=== PATIENT | female | born 1965 | race African-American/Black ===

== ENCOUNTER → 2016-07-23 | Outpatient (CLI) | payer BC ==
--- NOTE | 2016-07-24 14:37 | MM ---
Reason for exam: screening (asymptomatic). Last mammogram was performed 1 year ago. History: Patient is postmenopausal. Physical Findings: A clinical breast exam by your physician is recommended on an annual basis and results should be correlated with mammographic findings. MG Screening Mammo w CAD Bilateral CC and MLO view(s) were taken. Prior study comparison: July 20, 2015, bilateral MG screening mammo w CAD. July 18, 2014, bilateral MG screening mammo w CAD. There are scattered fibroglandular densities. Finding: There are typically benign calcifications in the right breast. There is a chronic nodularity bilaterally. No significant changes in finding since July 20, 2015 and July 18, 2014. ASSESSMENT: Benign, BI-RAD 2 RECOMMENDATION: Routine screening mammogram of both breasts in 1 year.
== END | disposition home or self-care (01) ==
LOC: RADMAMWWP 16:50
PROVIDERS: ATTEND Family Medicine
DX: Z12.31 Encounter for screening mammogram for malignant neoplasm of breast (principal)

== ENCOUNTER → 2016-08-30 | Outpatient (CLI) | payer BC ==
[2016-08-30 10:48] LABS: ALT 46 U/L (9-52); AST 40 U/L (14-36); Alkaline Phosphatase 88 U/L (38-126); Anion Gap 10 mmol/L; Blood Urea Nitrogen 11 mg/dL (7-17); Calcium 9.8 mg/dL (8.4-10.2); Carbon Dioxide 28 mmol/L (22-30); Chloride 105 mmol/L (98-107); Cholesterol 161 mg/dL (<200); Glucose 131 mg/dL (74-99); HDL Cholesterol 60 mg/dL (40-60); Non-African American GFR(MDRD) >60 (>60 ml/min/1.73 sqM); Sodium 143 mmol/L (137-145); Total Bilirubin 0.7 mg/dL (0.2-1.3); Total Protein 8.1 g/dL (6.3-8.2); Triglycerides 91 mg/dL (<150)
[2016-08-30 11:18] LABS: Hepatitis B Surface Ag Index 0.05
[2016-08-30 11:24] LABS: Hepatitis B Core IgM Index 0.03
[2016-08-30 11:35] LABS: Hepatitis C Virus IgG Index 0.07
[2016-08-30 11:40] LABS: Hepatitis C Virus IgG Ab Negative (Negative)
== END | disposition home or self-care (01) ==
LOC: LABWHC1 09:32
PROVIDERS: ATTEND Family Medicine
DX: Z00.00 Encounter for general adult medical examination without abnormal findings (principal); E78.5 Hyperlipidemia, unspecified; R94.5 Abnormal results of liver function studies
CPT/HCPCS: 36415; 80053; 80061; 80074

== ENCOUNTER → 2017-04-01 | Outpatient (CLI) | payer BC ==
[2017-04-01 10:59] LABS: ALT 81 U/L (9-52); AST 88 U/L (14-36); Alkaline Phosphatase 142 U/L (38-126); Blood Urea Nitrogen 19 mg/dL (7-17); Non-African American GFR(MDRD) >60 (>60 ml/min/1.73 sqM)
== END | disposition home or self-care (01) ==
LOC: LABWHC1 09:59
PROVIDERS: ATTEND Pain Medicine Pain Medicine
DX: N14.2 Nephropathy induced by unspecified drug, medicament or biological substance (principal)
CPT/HCPCS: 36415; 82565; 84075; 84450; 84460; 84520

== ENCOUNTER → 2017-04-08 | Outpatient (CLI) | payer BC | END | disposition home or self-care (01) | LOC: LABWHC1 07:08 | PROVIDERS: ATTEND Family Medicine | DX: E11.9 Type 2 diabetes mellitus without complications (principal) | CPT/HCPCS: 36415; 83036 ==

== ENCOUNTER → 2017-08-19 | Outpatient (CLI) | payer BC ==
[2017-08-19 07:40] LABS: ALT 43 U/L (9-52); AST 30 U/L (14-36); Albumin 3.8 g/dL (3.5-5.0); Alkaline Phosphatase 103 U/L (38-126); Anion Gap 12 mmol/L; Blood Urea Nitrogen 17 mg/dL (7-17); Calcium 9.8 mg/dL (8.4-10.2); Carbon Dioxide 30 mmol/L (22-30); Chloride 102 mmol/L (98-107); Cholesterol 166 mg/dL (<200); Glucose 219 mg/dL (74-99); HDL Cholesterol 60 mg/dL (40-60); LDL Cholesterol,Calculated 93 mg/dL (0-99); Potassium 3.5 mmol/L (3.5-5.1); Sodium 144 mmol/L (137-145); Total Bilirubin 0.5 mg/dL (0.2-1.3); Total Protein 6.7 g/dL (6.3-8.2); Triglycerides 65 mg/dL (<150)
[2017-08-19 12:57] LABS: Hemoglobin A1C 9.1 % (4.0-6.0)
== END | disposition home or self-care (01) ==
LOC: LABWHC1 06:36
PROVIDERS: ATTEND Family Medicine
DX: E11.9 Type 2 diabetes mellitus without complications (principal); E78.00 Pure hypercholesterolemia, unspecified; I10 Essential (primary) hypertension
CPT/HCPCS: 36415; 80053; 80061; 83036

== ENCOUNTER → 2017-08-21 | Outpatient (CLI) | payer BC ==
--- NOTE | 2017-08-24 10:27 | MM ---
Reason for exam: screening (asymptomatic). Last mammogram was performed 1 year and 1 month ago. History: Patient is postmenopausal. Physical Findings: A clinical breast exam by your physician is recommended on an annual basis and results should be correlated with mammographic findings. MG Screening Mammo w CAD Bilateral CC and MLO view(s) were taken. XCCL view(s) were taken of the left breast. Prior study comparison: July 23, 2016, bilateral MG screening mammo w CAD. July 20, 2015, bilateral MG screening mammo w CAD. There are scattered fibroglandular densities. No significant changes when compared with prior studies. ASSESSMENT: Negative, BI-RAD 1 RECOMMENDATION: Routine screening mammogram of both breasts in 1 year.
== END ==
LOC: RADMAMWWP 11:01
PROVIDERS: ATTEND Family Medicine
DX: Z12.31 Encounter for screening mammogram for malignant neoplasm of breast (principal)
CPT/HCPCS: 77067

== ENCOUNTER 2017-08-30 16:07 | Emergency (ER) | payer BC ==
[2017-08-30 16:12] VITALS: BP 146/74; PULSE 92; RESP 18; TEMP 98.2
--- NOTE | 2017-08-30 16:52 | ED ---
General Adult HPI - General Chief complaint: Upper Respiratory Infection Stated complaint: congestion Time Seen by Provider: 08/30/17 16:33 Source: patient, RN notes reviewed Mode of arrival: ambulatory Limitations: no limitations - History of Present Illness Initial comments: Patient's a 51-year-old female presented to the emergency room today with chief complaint of cough congestion rhinorrhea and sinus pressure over the last 2 weeks. She does admit that she's used [id number] Flonase and saline spray. She states this didn't help with her cough or congestion. She says is improved but she still feeling sinus pressure. She was some pressure in the left ear as well. Patient states that she doesn't seem to be given any better over the past 2 weeks. She denies any other complaints or associated symptoms at this time. Patient denies any recent fever, chills, shortness of breath, chest pain, back pain, abdominal pain, nausea or vomiting, numbness or tingling , dysuria or hematuria, constipation or diarrhea, headaches or visual changes, or any other complaints. - Related Data Home Medications Medication Instructions Recorded Confirmed Aspirin 81 mg PO DAILY 06/23/14 04/23/17 Atorvastatin Calcium [Lipitor] 10 mg PO DAILY 06/23/14 04/23/17 Furosemide [Lasix] 20 mg PO DAILY 06/23/14 04/23/17 Multivitamins, Thera [Multivitamin] 1 each PO DAILY 06/23/14 04/23/17 Potassium(Dose Unknown) 1 tab PO DAILY 06/23/14 04/23/17 Valsartan/Hydrochlorothiazide 1 each PO DAILY 06/23/14 04/23/17 [Diovan Hct 80-12.5 mg Tablet] Glimepiride [Amaryl] 4 mg PO DAILY 04/23/17 04/23/17 Insulin Glargine,Hum.rec.anlog 10 unit SQ DAILY 04/23/17 04/23/17 [Basaglar Kwikpen U-100] Liraglutide [Victoza 3-Frank] 1.8 mg SQ DAILY 04/23/17 04/23/17 Previous Rx's Medication Instructions Recorded Amoxicillin/Potassium Clav 1 each PO Q12HR #20 tab 08/30/17 [Augmentin 875-125 Tablet] Allergies Allergy/AdvReac Type Severity Reaction Status Date / Time No Known Allergies Allergy Verified 08/30/17 16:12 Review of Systems ROS Statement: Those systems with pertinent positive or pertinent negative responses have been documented in the HPI. ROS Other: All systems not noted in ROS Statement are negative. Past Medical History Past Medical History: Diabetes Mellitus, Osteoarthritis (OA) Additional Past Medical History / Comment(s): Chronic back pain History of Any Multi-Drug Resistant Organisms: None Reported Past Surgical History: Hysterectomy Additional Past Surgical History / Comment(s): carpal tunnel, D&C Past Anesthesia/Blood Transfusion Reactions: No Reported Reaction Past Psychological History: No Psychological Hx Reported Smoking Status: Never smoker Past Alcohol Use History: None Reported Past Drug Use History: None Reported General Exam - General Exam Comments Initial Comments: General: The patient is awake and alert, in no distress, and does not appear acutely ill. Eye: Pupils are equal, round and reactive to light, extra-ocular movements are intact. No nystagmus. There is normal conjunctiva bilaterally. No signs of icterus. Ears, nose, mouth and throat: There are moist mucous membranes and no oral lesions. No tenderness over the maxillary sinus. TMs clear bilaterally. Neck: The neck is supple, there is no tenderness or JVD. Cardiovascular: There is a regular rate and rhythm. No murmur, rub or gallop is appreciated. Respiratory: Lungs are clear to auscultation, respirations are non-labored, breath sounds are equal. No wheezes, stridor, rales, or rhonchi. Musculoskeletal: Normal ROM, no tenderness. Strength 5/5. Sensation intact. Pulses equal bilaterally 2+. Neurological: A&O x 3. CN II-XII intact, There are no obvious motor or sensory deficits. Coordination appears grossly intact. Speech is normal. Skin: Skin is warm and dry and no rashes or lesions are noted. Psychiatric: Cooperative, appropriate mood & affect, normal judgment. Limitations: no limitations Course Vital Signs 08/30/17 16:09 Temperature 98.2 F Pulse Rate 92 Respiratory 18 Rate Blood Pressure 146/74 O2 Sat by Pulse 98 Oximetry Medical Decision Making - Medical Decision Making Options were discussed with the patient about x-ray and lab work urine emergency room she declined. Patient does have some tenderness over the sinuses. Was discussed about treating with the antibiotic to cover for sinus infection as she has had symptoms for the past 2 weeks with no improvement. Patient states she would like to try antibiotic course. She states she will follow-up the family doctor. She is advised that should return to the emergency room if any symptoms increase or worsen or for any other concerns. Disposition Clinical Impression: Acute sinusitis Disposition: HOME SELF-CARE Condition: Good Instructions: Sinusitis (ED) Additional Instructions: Please use medication as discussed. Please follow-up with family doctor in the next 2 days of symptoms have not improved. Please return to emergency room if the symptoms increase or worsen or for any other concerns. Prescriptions: Amoxicillin/Potassium Clav [Augmentin 875-125 Tablet] 1 each PO Q12HR #20 tab Referrals: Maritza Martínez MD [Primary Care Provider] - 1-2 days Time of Disposition: 16:51
== END 2017-08-30 17:14 | disposition home or self-care (01) ==
LOC: EC 16:07
DX: J01.90 Acute sinusitis, unspecified (principal); E11.9 Type 2 diabetes mellitus without complications; Z53.29 Procedure and treatment not carried out because of patient's decision for other reasons; Z79.82 Long term (current) use of aspirin; Z79.4 Long term (current) use of insulin; Z79.899 Other long term (current) drug therapy
CPT/HCPCS: 99283

== ENCOUNTER 2018-09-01 17:03 | Emergency (ER) | payer BC ==
[2018-09-01 17:42] VITALS: BP 155/97; PULSE 90; RESP 16; TEMP 99
--- NOTE | 2018-09-01 18:12 | ED ---
ENT HPI - General Chief complaint: ENT Stated complaint: sorethroat, fever, body aches Time Seen by Provider: 09/01/18 17:45 Source: patient, RN notes reviewed Mode of arrival: ambulatory Limitations: no limitations - History of Present Illness Initial comments: 52-year-old female presents emergency Department chief complaint of fever, sore throat. Patient states that it's painful swallowing no improvement with [id number] medications. Denies any headache, dizziness, neck stiffness, nausea or vomiting no fatigue. Patient states that her granddaughter had recent strep infection. - Related Data Home Medications Medication Instructions Recorded Confirmed Aspirin 81 mg PO DAILY 06/23/14 09/01/18 Atorvastatin Calcium [Lipitor] 10 mg PO DAILY 06/23/14 09/01/18 Furosemide [Lasix] 20 mg PO DAILY 06/23/14 09/01/18 Multivitamins, Thera [Multivitamin] 1 tab PO DAILY 06/23/14 09/01/18 Valsartan/Hydrochlorothiazide 1 tab PO DAILY 06/23/14 09/01/18 [Diovan Hct 80-12.5 mg Tablet] Liraglutide [Victoza 3-Frank] 1.8 mg SQ DAILY 04/23/17 09/01/18 Empagliflozin [Jardiance] 25 mg PO DAILY 09/01/18 09/01/18 Metoprolol Succinate [Toprol XL] 100 mg PO DAILY 09/01/18 09/01/18 metFORMIN HCL 1,000 mg PO BID 09/01/18 09/01/18 Previous Rx's Medication Instructions Recorded Amoxicillin 500 mg PO Q8H #30 capsule 09/01/18 Allergies Allergy/AdvReac Type Severity Reaction Status Date / Time No Known Allergies Allergy Verified 09/01/18 18:04 Review of Systems ROS Statement: Those systems with pertinent positive or pertinent negative responses have been documented in the HPI. ROS Other: All systems not noted in ROS Statement are negative. Past Medical History Past Medical History: Diabetes Mellitus, Osteoarthritis (OA) Additional Past Medical History / Comment(s): Chronic back pain History of Any Multi-Drug Resistant Organisms: None Reported Past Surgical History: Hysterectomy Additional Past Surgical History / Comment(s): carpal tunnel, D&C Past Anesthesia/Blood Transfusion Reactions: No Reported Reaction Past Psychological History: No Psychological Hx Reported Smoking Status: Never smoker Past Alcohol Use History: None Reported Past Drug Use History: None Reported General Exam Limitations: no limitations General appearance: alert, in no apparent distress Head exam: Present: atraumatic, normocephalic, normal inspection Eye exam: Present: normal appearance, PERRL, EOMI. Absent: scleral icterus, conjunctival injection, periorbital swelling ENT exam: Present: mucous membranes moist, TM's normal bilaterally, normal external ear exam. Absent: normal oropharynx (Erythematous posterior pharynx mild edematous tonsils noted no exudates no difficulty swallowing) Neck exam: Present: normal inspection, full ROM, lymphadenopathy. Absent: tenderness, meningismus Respiratory exam: Present: normal lung sounds bilaterally. Absent: respiratory distress, wheezes, rales, rhonchi, stridor Cardiovascular Exam: Present: regular rate, normal rhythm, normal heart sounds. Absent: systolic murmur, diastolic murmur, rubs, gallop, clicks Course Vital Signs 09/01/18 17:41 Temperature 99 F Pulse Rate 90 Respiratory 16 Rate Blood Pressure 155/97 O2 Sat by Pulse 98 Oximetry Medical Decision Making - Medical Decision Making 52-year-old presented for fever sore throat. Patient has clinical strep pharyngitis will be started on amoxicillin. Return parameters were discussed. Disposition Clinical Impression: Streptococcal sore throat Disposition: HOME SELF-CARE Condition: Stable Instructions (If sedation given, give patient instructions): Pharyngitis (ED) Additional Instructions: Please return to the Emergency Department if symptoms worsen or any other concerns. Prescriptions: Amoxicillin 500 mg PO Q8H #30 capsule Is patient prescribed a controlled substance at d/c from ED?: No Referrals: Maritza Martínez MD [Primary Care Provider] - 1-2 days Time of Disposition: 18:12
== END 2018-09-01 18:30 | disposition home or self-care (01) ==
LOC: EC 17:03
DX: J02.0 Streptococcal pharyngitis (principal); E11.9 Type 2 diabetes mellitus without complications; Z90.710 Acquired absence of both cervix and uterus; Z79.82 Long term (current) use of aspirin; Z79.84 Long term (current) use of oral hypoglycemic drugs; Z79.899 Other long term (current) drug therapy
CPT/HCPCS: 99283

== ENCOUNTER → 2018-09-03 | Outpatient (CLI) | payer BC ==
--- NOTE | 2018-09-07 08:25 | MM ---
Reason for exam: screening (asymptomatic). Last mammogram was performed 1 year ago. History: Patient is postmenopausal. Physical Findings: A clinical breast exam by your physician is recommended on an annual basis and results should be correlated with mammographic findings. MG 3D Screening Mammo W/Cad Bilateral CC and MLO view(s) were taken. Prior study comparison: August 21, 2017, bilateral MG screening mammo w CAD. July 23, 2016, bilateral MG screening mammo w CAD. There are scattered fibroglandular densities. There is chronic nodularity in the left breast. No significant changes when compared with prior studies. ASSESSMENT: Negative, BI-RAD 1 RECOMMENDATION: Routine screening mammogram of both breasts in 1 year.
== END | disposition home or self-care (01) ==
LOC: RADMAMWWP 16:15
PROVIDERS: ATTEND Family Medicine
DX: Z12.31 Encounter for screening mammogram for malignant neoplasm of breast (principal)
CPT/HCPCS: 77063; 77067

== ENCOUNTER → 2020-03-21 | Outpatient (CLI) | payer BC ==
--- NOTE | 2020-03-23 12:25 | MM ---
Reason for exam: screening (asymptomatic). Last mammogram was performed 1 year and 7 months ago. History: Patient is postmenopausal. Physical Findings: A clinical breast exam by your physician is recommended on an annual basis and results should be correlated with mammographic findings. MG 3D Screening Mammo W/Cad Bilateral CC and MLO view(s) were taken. Prior study comparison: September 03, 2018, bilateral MG 3d screening mammo w/cad. August 21, 2017, bilateral MG screening mammo w CAD. There are scattered fibroglandular densities. Finding #1: There are masses in both breasts. Finding #2: There are typically benign calcifications in the right breast. No significant changes in finding since September 03, 2018 and August 21, 2017. ASSESSMENT: Benign, BI-RAD 2 RECOMMENDATION: Routine screening mammogram of both breasts in 1 year.
== END | disposition home or self-care (01) ==
LOC: RADMAMWWP 07:34
PROVIDERS: ATTEND Family Medicine
DX: Z12.31 Encounter for screening mammogram for malignant neoplasm of breast (principal)
CPT/HCPCS: 77063; 77067

== ENCOUNTER → 2020-04-09 | Outpatient (CLI) | payer BC | END | disposition home or self-care (01) | LOC: LABWHC1 11:28 | PROVIDERS: ATTEND Family Medicine | DX: Z03.818 Encounter for observation for suspected exposure to other biological agents ruled out (principal) | CPT/HCPCS: U0003; C9803 ==

== ENCOUNTER 2021-01-07 08:28 | Observation (INO) | payer BC ==
--- NOTE | 2021-01-07 09:06 | ED ---
General Adult HPI - General Chief complaint: Chest Pain Stated complaint: Chest pressure, back pain Time Seen by Provider: 01/07/21 08:35 Source: patient Mode of arrival: ambulatory Limitations: no limitations - History of Present Illness Initial comments: Dictation was produced using [employer] dictation software. please excuse any grammatical, word or spelling errors. Chief Complaint: 55-year-old female with chief complaint of chest pain History of Present Illness: Is a 55-year-old female she has past medical history of diabetes and family history of coronary artery disease. She states that yesterday reflux symptoms are acting up. She states that she has some mild sharp pain to her substernal area radiates to her back. States that it's pleuritic. Patient has been eating more burritos recently and attributes her symptoms to reflux. She decided that she should come to the emergency department today. At the moment she is asymptomatic. She reports that her sister was diagnosed with major cardiac disease at the age of 59. Patient has any cardiac history. Patient denies any associated diaphoresis or nausea. Patient denies any lower extremity symptoms. 2 weeks ago patient however was on a trip where she flew to [facility]. No history of DVT or PE. The ROS documented in this emergency department record has been reviewed and confirmed by me. Those systems with pertinent positive or negative responses have been documented in the HPI. All other systems are other negative and/or noncontributory. PHYSICAL EXAM: General Impression: Alert and oriented x3, not in acute distress HEENT: Normocephalic atraumatic, extra-ocular movements intact, pupils equal and reactive to light bilaterally, mucous membranes moist. Cardiovascular: Heart regular rate and rhythm Chest: Able to complete full sentences, no retractions, no tachypnea Abdomen: abdomen soft, non-tender, non-distended, no organomegaly Musculoskeletal: Pulses present and equal in all extremities, no peripheral edema Motor: no focal deficits noted Neurological: CN II-XII grossly intact, no focal motor or sensory deficits noted Skin: Intact with no visualized rashes Psych: Normal affect and mood ED course: 55-year-old well-appearing female presents emergency department for atypical chest pain with typical features. Signs upon arrival are within acceptable limits. EKG doesn't show any signs of ischemia or infarction. Patient is strong family history. She does also have medical risk factors for ACS. Valuation obtained. CBC, coag panel, d-dimer is negative. Metabolic panel is within acceptable limits. Troponin is negative. Chest x-ray is nonacute. Patient reevaluated at bedside found him in stable medical condition. She does not have any active chest pain. Disposition options were discussed. Patient is agreeable for admission with serial troponins and cardiology consultation. Patient will be [facility] to [facility]. Case discussed with Dr. Arciniega. EKG interpretation: Ventricular rate 79, normal sinus rhythm, NJ interval 98, QRS 94, QTC 449. No NJ prolongation, no QTC prolongation, no ST or T-wave changes noted. No old EKG for comparison. Overall, this EKG is unremarkable - Related Data Home Medications Medication Instructions Recorded Confirmed Aspirin 81 mg PO DAILY 06/23/14 01/07/21 Atorvastatin Calcium [Lipitor] 10 mg PO DAILY 06/23/14 01/07/21 Furosemide [Lasix] 20 mg PO DAILY 06/23/14 01/07/21 Multivitamins, Thera [Multivitamin] 1 tab PO DAILY 06/23/14 01/07/21 Valsartan/Hydrochlorothiazide 1 tab PO DAILY 06/23/14 01/07/21 [Diovan Hct 80-12.5 mg Tablet] Metoprolol Succinate [Toprol XL] 100 mg PO DAILY 09/01/18 01/07/21 metFORMIN HCL [Glucophage] 1,000 mg PO BID 09/01/18 01/07/21 Dulaglutide [Trulicity] 3 mg SQ FR 01/07/21 01/07/21 Metoprolol Succinate (ER) [Toprol 100 mg PO DAILY 01/07/21 01/07/21 Xl] valACYclovir [Valtrex] 500 mg PO DAILY 01/07/21 01/07/21 Allergies Allergy/AdvReac Type Severity Reaction Status Date / Time No Known Allergies Allergy Verified 01/07/21 09:28 Review of Systems ROS Statement: Those systems with pertinent positive or pertinent negative responses have been documented in the HPI. ROS Other: All systems not noted in ROS Statement are negative. Past Medical History Past Medical History: Diabetes Mellitus, Osteoarthritis (OA) Additional Past Medical History / Comment(s): Chronic back pain History of Any Multi-Drug Resistant Organisms: None Reported Past Surgical History: Hysterectomy Additional Past Surgical History / Comment(s): carpal tunnel, D&C Past Anesthesia/Blood Transfusion Reactions: No Reported Reaction Past Psychological History: No Psychological Hx Reported Smoking Status: Never smoker Past Alcohol Use History: None Reported Past Drug Use History: None Reported General Exam Limitations: no limitations Course Vital Signs 01/07/21 01/07/21 08:30 11:11 Temperature 97.6 F Pulse Rate 85 68 Respiratory 18 16 Rate Blood Pressure 165/101 164/82 O2 Sat by Pulse 99 97 Oximetry Medical Decision Making - Lab Data Result diagrams: 01/07/21 09:05 01/07/21 09:05 Lab Results 01/07/21 01/07/21 01/07/21 Range/Units 09:05 09:05 09:05 WBC 4.6 (3.8-10.6) k/uL RBC 4.19 (3.80-5.40) m/uL Hgb 13.3 (11.4-16.0) gm/dL Hct 40.3 (34.0-46.0) % MCV 96.2 (80.0-100.0) fL MCH 31.9 (25.0-35.0) pg MCHC 33.1 (31.0-37.0) g/dL RDW 13.2 (11.5-15.5) % Plt Count 221 (150-450) k/uL MPV 8.3 Neutrophils % 50 % Lymphocytes % 37 % Monocytes % 7 % Eosinophils % 2 % Basophils % 1 % Neutrophils # 2.3 (1.3-7.7) k/uL Lymphocytes # 1.7 (1.0-4.8) k/uL Monocytes # 0.3 (0-1.0) k/uL Eosinophils # 0.1 (0-0.7) k/uL Basophils # 0.0 (0-0.2) k/uL PT 9.6 (9.0-12.0) sec INR 0.9 (<1.2) APTT 22.5 (22.0-30.0) sec D-Dimer 0.44 (<0.60) mg/L FEU Sodium 140 (137-145) mmol/L Potassium 3.7 (3.5-5.1) mmol/L Chloride 109 H (98-107) mmol/L Carbon Dioxide 26 (22-30) mmol/L Anion Gap 5 mmol/L BUN 10 (7-17) mg/dL Creatinine 0.59 (0.52-1.04) mg/dL Est GFR (CKD-EPI)AfAm >90 (>60 ml/min/1.73 sqM) Est GFR (CKD-EPI)NonAf >90 (>60 ml/min/1.73 sqM) Glucose 125 H (74-99) mg/dL Calcium 9.5 (8.4-10.2) mg/dL Magnesium 2.0 (1.6-2.3) mg/dL Total Bilirubin 0.3 (0.2-1.3) mg/dL AST 31 (14-36) U/L ALT 18 (4-34) U/L Alkaline Phosphatase 70 (38-126) U/L Troponin I (0.000-0.034) ng/mL Total Protein 6.6 (6.3-8.2) g/dL Albumin 3.8 (3.5-5.0) g/dL 01/07/21 Range/Units 09:05 WBC (3.8-10.6) k/uL RBC (3.80-5.40) m/uL Hgb (11.4-16.0) gm/dL Hct (34.0-46.0) % MCV (80.0-100.0) fL MCH (25.0-35.0) pg MCHC (31.0-37.0) g/dL RDW (11.5-15.5) % Plt Count (150-450) k/uL MPV Neutrophils % % Lymphocytes % % Monocytes % % Eosinophils % % Basophils % % Neutrophils # (1.3-7.7) k/uL Lymphocytes # (1.0-4.8) k/uL Monocytes # (0-1.0) k/uL Eosinophils # (0-0.7) k/uL Basophils # (0-0.2) k/uL PT (9.0-12.0) sec INR (<1.2) APTT (22.0-30.0) sec D-Dimer (<0.60) mg/L FEU Sodium (137-145) mmol/L Potassium (3.5-5.1) mmol/L Chloride (98-107) mmol/L Carbon Dioxide (22-30) mmol/L Anion Gap mmol/L BUN (7-17) mg/dL Creatinine (0.52-1.04) mg/dL Est GFR (CKD-EPI)AfAm (>60 ml/min/1.73 sqM) Est GFR (CKD-EPI)NonAf (>60 ml/min/1.73 sqM) Glucose (74-99) mg/dL Calcium (8.4-10.2) mg/dL Magnesium (1.6-2.3) mg/dL Total Bilirubin (0.2-1.3) mg/dL AST (14-36) U/L ALT (4-34) U/L Alkaline Phosphatase (38-126) U/L Troponin I <0.012 (0.000-0.034) ng/mL Total Protein (6.3-8.2) g/dL Albumin (3.5-5.0) g/dL Disposition Clinical Impression: Chest pain Disposition: ADMITTED IP TO THIS HOSP Condition: Fair Referrals: Maritza Martínez MD [Primary Care Provider] - 1-2 days
[2021-01-07 09:19] LABS: Basophils % (A) 1 %; Eosinophils # (A) 0.1 k/uL (0-0.7); Eosinophils % (A) 2 %; HCT 40.3 % (34.0-46.0); HGB 13.3 gm/dL (11.4-16.0); Lymphocytes # (A) 1.7 k/uL (1.0-4.8); Lymphocytes % (A) 37 %; MCH 31.9 pg (25.0-35.0); MCHC 33.1 g/dL (31.0-37.0); MCV 96.2 fL (80.0-100.0); Mean Platelet Volume 8.3; Monocytes # (A) 0.3 k/uL (0-1.0); Monocytes % (A) 7 %; Neutrophils # (A) 2.3 k/uL (1.3-7.7); Neutrophils % (A) 50 %; Platelet Count 221 k/uL (150-450); RBC 4.19 m/uL (3.80-5.40); RDW 13.2 % (11.5-15.5); WBC 4.6 k/uL (3.8-10.6)
--- NOTE | 2021-01-07 09:26 | XR ---
EXAMINATION TYPE: XR chest 2V DATE OF EXAM: 01/07/2021 COMPARISON: None HISTORY: 55-year-old female chest pain TECHNIQUE: PA and lateral views FINDINGS: Heart is mildly enlarged. Aorta and pulmonary vasculature within normal limits. No consolidation or p leural effusion. IMPRESSION: Mild cardiomegaly. Query any known underlying heart conditions. No acute cardiopulmonary process.
[2021-01-07 09:41] LABS: INR 0.9 (<1.2); Partial Thromboplastin Time 22.5 sec (22.0-30.0); Prothrombin Time 9.6 sec (9.0-12.0)
[2021-01-07 09:49] LABS: ALT 18 U/L (4-34); AST 31 U/L (14-36); African American GFR (CKD) >90 (>60 ml/min/1.73 sqM); Albumin 3.8 g/dL (3.5-5.0); Alkaline Phosphatase 70 U/L (38-126); Anion Gap 5 mmol/L; Blood Urea Nitrogen 10 mg/dL (7-17); Calcium 9.5 mg/dL (8.4-10.2); Carbon Dioxide 26 mmol/L (22-30); Chloride 109 mmol/L (98-107); Glucose 125 mg/dL (74-99); Non-African American GFR(CKD) >90 (>60 ml/min/1.73 sqM); Potassium 3.7 mmol/L (3.5-5.1); Sodium 140 mmol/L (137-145); Total Bilirubin 0.3 mg/dL (0.2-1.3); Total Protein 6.6 g/dL (6.3-8.2)
[2021-01-07] MEDS ORDERED: ASPIRIN 81 MG PO STA (11:26)
[2021-01-07] MEDS ORDERED: NITROGLYCERIN SL TABS 0.4 MG TAB SUBLINGUAL PRN (11:26)
--- NOTE | 2021-01-07 14:12 | P.DS ---
Providers Date of admission: 01/07/21 11:26 Expected date of discharge: 01/07/21 Attending physician: Gilles Arciniega Consults: 01/07/21 11:26 Consult Physician Urgent Consulting Provider: Dom Stovall Consult Reason/Comments: chest pain Do you want consulting provider notified?: Yes Primary care physician: [facility] Course: This is a 57-year-old female with past medical history noted below significant for type 2 diabetes that presented to the emergency room with right shoulder pain. Patient said that her symptoms started on Thursday when she woke up with a sense of chest heaviness that quickly resolved. Afterwards patient was having problems with chronic low back pain is getting worse with coughing. Patient said that after that one brief episode of chest heaviness on Thursday morning she did not have any other chest pain. She denies any exertional dyspnea or chest pain. She is fairly active with no difficulty. She denies any known co ronary artery disease. She denies any shortness of breath or palpitation. Patient said that she tried to get to her primary care physician's office today but she was told that the first opening is in one week and decided to come into the emergency room. At the time of my evaluation in the ER, patient was having some discomfort in her right shoulder. She had full range of motion and no evidence of swelling or erythema. She has severe tenderness to palpation over the right scapula superior border. Patient twelve-lead EKG in the ER showed no acute ischemic changes. Serial troponin were negative 2 sets. Patient will be discharged home in a stable condition. She will follow-up with her PCP as directed. Patient Condition at Discharge: Fair Plan - Discharge Summary New Discharge Prescriptions: No Action Furosemide [Lasix] 20 mg PO DAILY Valsartan/Hydrochlorothiazide [Diovan Hct 80-12.5 mg Tablet] 1 tab PO DAILY Atorvastatin Calcium [Lipitor] 10 mg PO DAILY Aspirin 81 mg PO DAILY Multivitamins, Thera [Multivitamin] 1 tab PO DAILY metFORMIN HCL [Glucophage] 1,000 mg PO BID Metoprolol Succinate [Toprol XL] 100 mg PO DAILY Metoprolol Succinate (ER) [Toprol Xl] 100 mg PO DAILY Dulaglutide [Trulicity] 3 mg SQ FR valACYclovir [Valtrex] 500 mg PO DAILY Discharge Medication List Aspirin 81 mg PO DAILY 06/23/14 [History] Atorvastatin Calcium [Lipitor] 10 mg PO DAILY 06/23/14 [History] Furosemide [Lasix] 20 mg PO DAILY 06/23/14 [History] Multivitamins, Thera [Multivitamin] 1 tab PO DAILY 06/23/14 [History] Valsartan/Hydrochlorothiazide [Diovan Hct 80-12.5 mg Tablet] 1 tab PO DAILY 06/23/14 [History] Metoprolol Succinate [Toprol XL] 100 mg PO DAILY 09/01/18 [History] metFORMIN HCL [Glucophage] 1,000 mg PO BID 09/01/18 [History] Dulaglutide [Trulicity] 3 mg SQ FR 01/07/21 [History] Metoprolol Succinate (ER) [Toprol Xl] 100 mg PO DAILY 01/07/21 [History] valACYclovir [Valtrex] 500 mg PO DAILY 01/07/21 [History] Follow up Appointment(s)/Referral(s): Maritza Martínez MD [Primary Care Provider] - 1-2 days Discharge Disposition: HOME SELF-CARE
--- NOTE | 2021-01-07 14:12 | P.HPIM ---
History of Present Illness H&P Date: 01/07/21 Chief Complaint: Right shoulder pain This is a 57-year-old female with past medical history noted below significant for type 2 diabetes that presented to the emergency room with right shoulder pain. Patient said that her symptoms started on Thursday when she woke up with a sense of chest heaviness that quickly resolved. Afterwards patient was having problems with chronic low back pain is getting worse with coughing. Patient said that after that one brief episode of chest heaviness on Thursday morning she did not have any other chest pain. She denies any exertional dyspnea or chest pain. She is fairly active with no difficulty. She denies any known coronary artery disease. She denies any shortness of breath or palpitation. Patient said that she tried to get to her primary care physician's office today but she was told that the first opening is in one week and decided to come into the emergency room. At the time of my evaluation in the ER, patient was having some discomfort in her right shoulder. She had full range of motion and no evidence of swelling or erythema. She has severe tenderness to palpation over the right scapula superior border. Patient twelve-lead EKG in the ER showed no acute ischemic changes. Serial troponin were negative 2 sets. Patient will be discharged home in a stable condition. She will follow-up with her PCP as dire cted. Review of Systems Review of system: 14 points review of systems were obtained and were negative except to what were mentioned in the HPI. Past Medical History Past Medical History: Diabetes Mellitus, Osteoarthritis (OA) Additional Past Medical History / Comment(s): Chronic back pain History of Any Multi-Drug Resistant Organisms: None Reported Past Surgical History: Hysterectomy Additional Past Surgical History / Comment(s): carpal tunnel, D&C Past Anesthesia/Blood Transfusion Reactions: No Reported Reaction Past Psychological History: No Psychological Hx Reported Smoking Status: Never smoker Past Alcohol Use History: None Reported Past Drug Use History: None Reported Medications and Allergies Home Medications Medication Instructions Recorded Confirmed Type Aspirin 81 mg PO DAILY 06/23/14 01/07/21 History Atorvastatin Calcium [Lipitor] 10 mg PO DAILY 06/23/14 01/07/21 History Furosemide [Lasix] 20 mg PO DAILY 06/23/14 01/07/21 History Multivitamins, Thera [Multivitamin] 1 tab PO DAILY 06/23/14 01/07/21 History Valsartan/Hydrochlorothiazide 1 tab PO DAILY 06/23/14 01/07/21 History [Diovan Hct 80-12.5 mg Tablet] Metoprolol Succinate [Toprol XL] 100 mg PO DAILY 09/01/18 01/07/21 History metFORMIN HCL [Glucophage] 1,000 mg PO BID 09/01/18 01/07/21 History Dulaglutide [Trulicity] 3 mg SQ FR 01/07/21 01/07/21 History Metoprolol Succinate (ER) [Toprol 100 mg PO DAILY 01/07/21 01/07/21 History Xl] valACYclovir [Valtrex] 500 mg PO DAILY 01/07/21 01/07/21 History Allergies Allergy/AdvReac Type Severity Reaction Status Date / Time No Known Allergies Allergy Verified 01/07/21 09:28 Physical Exam Vitals: Vital Signs Temp Pulse Resp BP Pulse Ox 01/07/21 11:26 70 17 148/71 96 01/07/21 11:11 68 16 164/82 97 01/07/21 08:30 97.6 F 85 18 165/101 99 Intake and Output 01/06/21 01/07/21 01/07/21 22:59 06:59 14:59 Other: Weight 81.647 kg General: The patient is awake and alert, in no distress Eye: there is normal conjunctiva bilaterally. Neck: The neck is supple, there is no JVD. Cardiovascular: Normal S1-S2, no S3-S4, no murmurs. Respiratory: Lungs clear to auscultation bilaterally Gastrointestinal: Abdomen is soft, nontender Musculoskeletal: There is no pedal edema. Neurological:. Speech is normal. Skin: Skin is warm and dry Results CBC & Chem 7: 01/07/21 09:05 01/07/21 09:05 Labs: Abnormal Lab Results - Last 24 Hours (Table) 01/07/21 Range/Units 09:05 Chloride 109 H (98-107) mmol/L Glucose 125 H (74-99) mg/dL Assessment and Plan Assessment: This is a 57-year-old female with past medical history noted below significant for type 2 diabetes that presented to the emergency room with right shoulder pain. Patient said that her symptoms started on Thursday when she woke up with a sense of chest heaviness that quickly resolved. Afterwards patient was having problems with chronic low back pain is getting worse with coughing. Patient said that after that one brief episode of chest heaviness on Thursday morning she did not have any other chest pain. She denies any exertional dyspnea or chest pain. She is fairly active with no difficulty. She denies any known coronary artery disease. She denies any shortness of breath or palpitation. Patient said that she tried to get to her primary care physician's office today but she was told that the first opening is in one week and decided to come into the emergency room. At the time of my evaluation in the ER, patient was having some discomfort in her right shoulder. She had full range of motion and no e vidence of swelling or erythema. She has severe tenderness to palpation over the right scapula superior border. Patient twelve-lead EKG in the ER showed no acute ischemic changes. Serial troponin were negative 2 sets. Patient will be discharged home in a stable condition. She will follow-up with her PCP as directed.
[2021-01-07 18:01] LABS: Glucose,Whole Blood 162 mg/dL (75-99)
[2021-01-07 21:56] LABS: Glucose,Whole Blood 148 mg/dL (75-99)
[2021-01-08 07:32] LABS: Glucose,Whole Blood 119 mg/dL (75-99)
[2021-01-08 08:16] VITALS: BP 144/85; PULSE 67; RESP 17; TEMP 97.9
[2021-01-08] MEDS ORDERED: ASPIRIN 325 MG TAB PO SCH (09:00)
[2021-01-08] MEDS ORDERED: hydroCHLOROthiazide 12.5 MG CAP PO SCH (09:00)
[2021-01-08] MEDS ORDERED: METOPROLOL SUCCINATE (ER) 100 MG TAB.ER.24H PO SCH (09:00)
[2021-01-08] MEDS ORDERED: ATORVASTATIN 10 MG TAB PO SCH (09:00)
[2021-01-08] MEDS ORDERED: VALSARTAN 80 MG TAB PO SCH (09:00)
[2021-01-08] MEDS ORDERED: FUROSEMIDE 20 MG TAB PO SCH (09:00)
[2021-01-08] MEDS ORDERED: ASPIRIN 81 MG PO SCH (09:00)
--- NOTE | 2021-01-08 09:33 | P.CRDCN ---
History of Present Illness History of present illness: HISTORY OF PRESENTING ILLNESS This is a pleasant 55-year-old female past medical history significant for type 2 diabetes and hypertension. 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 We have been asked to see in consultation for chest pain. Patient is seen and examined at bedside, no acute distress. Her chest pain started on Thursday. Describes it as a burning pressure. Located on the left side of her chest. Radiating to her upper back. She states prior to this she did have a burrito and felt as if it may have been acid reflux, she took Tums her pain did not resolve. She also took Ibuprofen with no relief. Pain lasted almost all day. Resolved on Thursday on its own. She had associated shallow breathing/mild shortness of breath. She denies associated diaphoresis, nausea, lightheadedness dizziness or syncope. Aggravating factors included lying down in bed. Alleviating factors included activity. The more she did at home, she felt better. She called her PCP on Thursday and they recommended the patient go to the emergency department for further evaluation. Patient is a non/never smoker. Denies alcohol or illicit drug use. Denies history of KS or stroke. Denies family history of coronary artery disease or KS. Her sister did recently have a pacemaker placement. DIAGNOSTICS EKG reveals sinus rhythm, heart rate 79, no ST-T abnormalities Most recent stress test- Cardiolite in 2014- negative Telemetry tracings indicate sinus mechanism, heart rate 60s-70s Chest xray no acute cardiopulmonary process. Laboratory reviewed, troponin negative x 3, CBC unremarkable, d-dimer negative, sodium 140, potassium 3.7, BUN 10, serum creatinine 0.5, magnesium 2.0 Current home cardiac medications include aspirin Milligrams daily, atorvastatin 10 mg daily, metoprolol succinate 100 mg daily, valsartan/hydrochlorothiazide 8012 0.5 mg daily REVIEW OF SYSTEMS At the time of my exam: CONSTITUTIONAL: Denies fever or chills. CARDIOVASCULAR:+ chest pain, +shortness of breath, Denies orthopnea, PND or palpitations. RESPIRATORY: Denies cough. GASTROINTESTINAL: Denies abdominal pain, diarrhea, constipation, nausea or vomiting. MUSCULOSKELETAL: Denies myalgias. NEUROLOGIC: Denies numbness, tingling, headacbe or weakness. ENDOCRINE: Denies fatigue, weight change, polydipsia or polyurina. GENITOURINARY: Denies burning, hematuria or urgency with micturation. HEMATOLOGIC: Denies history of anemia or bleeding. PHYSICAL EXAMINATION Blood pressure 144/85 heart rate 67 afebrile and maintaining oxygen saturation 99% on room air CONSTITUTIONAL: No apparent distress. HEENT: Head is normocephalic. Pupils are equal, round. Sclerae anicteric. Mucous membranes of the mouth are moist. No JVD. No carotid bruit. CHEST EXAMINATION: Lungs are clear to auscultation. No chest wall tenderness is noted on palpation or with deep breathing. HEART EXAMINATION: Regular rate and rhythm. S1, S2 heard. No murmurs, gallops or rub. ABDOMEN: Soft, nontender. Positive bowel sounds. EXTREMITIES: 2+ peripheral pulses, no lower extremity edema and no calf tenderness. SKIN: intact NEUROLOGIC EXAMINATION: Patient is awake, alert and oriented x3. ASSESSMENT Chest pain, acute coronary syndrome has been ruled out. Type 2 Diabetes History of Hypertension PLAN An acute coronary event has been ruled out with no EKG evidence of ischemia and negative cardiac enzymes. Obtain 2D echocardiogram and doppler study to assess cardiac structure and function. Perform Stress echo test to assess for stress induced cardiac ischemia. If stress test is normal, and no acute findings on echocardiogram ok to discharge from cardiology perspective Lipid Panel pending Continue patient's home cardiac medications Thank you kindly for this consultation. Nurse Practitioner note has been reviewed, I agree with a documented findings and plan of care. Patient was seen and examined. Past Medical History Past Medical History: Diabetes Mellitus, Osteoarthritis (OA) Additional Past Medical History / Comment(s): Chronic back pain History of Any Multi-Drug Resistant Organisms: None Reported Past Surgical History: Hysterectomy Additional Past Surgical History / Comment(s): carpal tunnel, D&C Past Anesthesia/Blood Transfusion Reactions: No Reported Reaction Past Psychological History: No Psychological Hx Reported Smoking Status: Never smoker Past Alcohol Use History: None Reported Past Drug Use History: None Reported Medications and Allergies Home Medications Medication Instructions Recorded Confirmed Type Aspirin 81 mg PO DAILY 06/23/14 01/07/21 History Atorvastatin Calcium [Lipitor] 10 mg PO DAILY 06/23/14 01/07/21 History Furosemide [Lasix] 20 mg PO DAILY 06/23/14 01/07/21 History Multivitamins, Thera [Multivitamin] 1 tab PO DAILY 06/23/14 01/07/21 History Valsartan/Hydrochlorothiazide 1 tab PO DAILY 06/23/14 01/07/21 History [Diovan Hct 80-12.5 mg Tablet] Metoprolol Succinate [Toprol XL] 100 mg PO DAILY 09/01/18 01/07/21 History metFORMIN HCL [Glucophage] 1,000 mg PO BID 09/01/18 01/07/21 History Dulaglutide [Trulicity] 3 mg SQ FR 01/07/21 01/07/21 History Metoprolol Succinate (ER) [Toprol 100 mg PO DAILY 01/07/21 01/07/21 History Xl] valACYclovir [Valtrex] 500 mg PO DAILY 01/07/21 01/07/21 History Allergies Allergy/AdvReac Type Severity Reaction Status Date / Time No Known Allergies Allergy Verified 01/07/21 09:28 Physical Exam Vitals: Vital Signs Temp Pulse Pulse Resp BP BP BP 01/08/21 02:00 70 01/08/21 01:54 98.0 F 70 15 148/88 01/07/21 20:00 70 16 01/07/21 19:49 97.8 F 70 16 132/81 01/07/21 15:59 97.7 F 76 16 183/91 01/07/21 11:26 70 17 148/71 01/07/21 11:11 68 16 164/82 01/07/21 08:30 97.6 F 85 18 165/101 Pulse Ox 01/08/21 02:00 01/08/21 01:54 98 01/07/21 20:00 01/07/21 19:49 98 01/07/21 15:59 100 01/07/21 11:26 96 01/07/21 11:11 97 01/07/21 08:30 99 Intake and Output 01/07/21 01/07/21 01/08/21 14:59 22:59 06:59 Intake Total 400 Balance 400 Intake: Oral 400 Other: Voiding Method Toilet # Voids 2 Weight 81.647 kg 81.647 kg Results 01/07/21 09:05 01/07/21 09:05 Cardiac Enzymes 01/07/21 01/07/21 01/07/21 Range/Units 09:05 09:05 12:22 AST 31 (14-36) U/L Troponin I <0.012 <0.012 (0.000-0.034) ng/mL 01/07/21 Range/Units 15:34 AST (14-36) U/L Troponin I <0.012 (0.000-0.034) ng/mL Coagulation 01/07/21 Range/Units 09:05 PT 9.6 (9.0-12.0) sec APTT 22.5 (22.0-30.0) sec CBC 01/07/21 Range/Units 09:05 WBC 4.6 (3.8-10.6) k/uL RBC 4.19 (3.80-5.40) m/uL Hgb 13.3 (11.4-16.0) gm/dL Hct 40.3 (34.0-46.0) % Plt Count 221 (150-450) k/uL Comprehensive Metabolic Panel 01/07/21 Range/Units 09:05 Sodium 140 (137-145) mmol/L Potassium 3.7 (3.5-5.1) mmol/L Chloride 109 H (98-107) mmol/L Carbon Dioxide 26 (22-30) mmol/L BUN 10 (7-17) mg/dL Creatinine 0.59 (0.52-1.04) mg/dL Glucose 125 H (74-99) mg/dL Calcium 9.5 (8.4-10.2) mg/dL AST 31 (14-36) U/L ALT 18 (4-34) U/L Alkaline Phosphatase 70 (38-126) U/L Total Protein 6.6 (6.3-8.2) g/dL Albumin 3.8 (3.5-5.0) g/dL Current Medications Generic Name Dose Route Start Last Admin Trade Name Freq PRN Reason Stop Dose Admin Aspirin 81 mg 01/08/21 09:00 Aspirin 81 Mg PO DAILY [facility] Atorvastatin Calcium 10 mg 01/08/21 09:00 Atorvastatin 10 Mg Tab PO DAILY [facility] Furosemide 20 mg 01/08/21 09:00 Furosemide 20 Mg Tab PO DAILY [facility] Hydrochlorothiazide 12.5 mg 01/08/21 09:00 Hydrochlorothiazide 12.5 Mg Cap PO DAILY [facility] Metoprolol Succinate 100 mg 01/08/21 09:00 Metoprolol Succinate (Er) 100 Mg Tab.Er.24h PO DAILY [facility] Nitroglycerin 0.4 mg 01/07/21 11:26 Nitroglycerin Sl Tabs 0.4 Mg Tab SUBLINGUAL Q5M PRN Chest Pain Valsartan 80 mg 01/08/21 09:00 Valsartan 80 Mg Tab PO DAILY [facility] Intake and Output 01/07/21 01/07/21 01/08/21 14:59 22:59 06:59 Intake Total 400 Balance 400 Intake: Oral 400 Other: Voiding Method Toilet # Voids 2 Weight 81.647 kg 81.647 kg Patient Weight 01/08/21 06:59 Weight 81.647 kg 01/07/21 09:05 01/07/21 09:05
--- NOTE | 2021-01-08 09:35 | ECHOF ---
Referral Reason:chest pain MEASUREMENTS -------- HEIGHT: 162.6 cm WEIGHT: 81.6 kg BP: 148/71 RVIDd: 2.6 cm (< 3.3) IVSd: 1.3 cm (0.6 - 1.1) LVIDd: 3.7 cm (3.9 - 5.3) LVPWd: 1.4 cm (0.6 - 1.1) IVSs: 1.7 cm LVIDs: 2.5 cm LVPWs: 1.8 cm LA Diam: 3.4 cm (2.7 - 3.8) IVSd: 1.3 cm (0.6 - 1.1) LVIDd: 4.3 cm (3.9 - 5.3) LVPWd: 1.2 cm (0.6 - 1.1) IVSs: 1.8 cm LVIDs: 3.0 cm LVPWs: 1.6 cm EDV(Teich): 81 ml ESV(Teich): 34 ml EF(Teich): 58 % %FS: 30 % SV(Teich): 47 ml Ao Diam: 2.9 cm (2.0 - 3.7) AV Cusp: 2.0 cm (1.5 - 2.6) MV EXCURSION: 13.362 mm (> 18.000) MV EF SLOPE: 53 mm/s (70 - 150) EPSS: 0.9 cm MV E Yfn: 0.62 m/s MV DecT: 132 ms MV A Yfn: 0.81 m/s MV E/A Ratio: 0.77 RAP: 5.00 mmHg RVSP: 22.70 mmHg FINDINGS -------- Sinus rhythm. This was a technically good study. The left ventricular size is normal. There is mild concentric left ventricular hypertrophy. Overa ll left ventricular systolic function is normal with, an EF between 55 - 60 %. The right ventricle is normal in size. The left atrium is normal in size. The right atrium is normal in size. Interatrial and interventricular septum intact. There is mild aortic valve sclerosis. Trace amount of aortic regurgitation. There is trace mitral regurgitation. Mild tricuspid regurgitation present. Right ventricular systolic pressure is normal at < 35 mmHg. Trace/mild (physiologic) pulmonic regurgitation. The aortic root size is normal. Normal inferior vena cava with normal inspiratory collapse consistent with estimated right atrial pre ssure of 5 mmHg. There is no pericardial effusion. CONCLUSIONS -------- 1. The left ventricular size is normal. 2. There is mild concentric left ventricular hypertrophy. 3. Overall left ventricular systolic function is normal with, an EF between 55 - 60 %. 4. There is mild aortic valve sclerosis. 5. Trace amount of aortic regurgitation. 6. There is trace mitral regurgitation. 7. Mild tricuspid regurgitation present. 8. Trace/mild (physiologic) pulmonic regurgitation. 9. There is no pericardial effusion. LAN SPECIALIST: Tory Kong RDCS
--- NOTE | 2021-01-08 11:17 | P.STRESS ---
- Stress Test Note Stress Test Results/Findings: Exam Performed: stress echo exercise Exam Date: 01/08/21 Reason for Exam: CHEST PAIN Height: 5 ft 4 in Weight: 81.65 kg Protocol: STRESS ECHO Stage: 3 Duration of Exercise: 9:02 Resting Heart Rate: 70 Resting Blood Pressure: 146/96 Maximum Achieved Heart Rate: 142 Maximum Achieved Blood Pressure: 198/84 85% PMHR: 139 100% PMHR: 163 METS: 10.5 Technologist Comment: Stress Test Results/Findings: This is a 55-year-old female with history of hypertension and diabetes being evaluated for chest pains. Stress data: Baseline EKG showed sinus rhythm with normal PA and QRS duration. Blood pressure at rest is 146/96 with pulse rate of 70. Patient walked on the Flip protocol for 9 minutes reaching a maximum rate of 142 with a blood pressure 168/87. EKGs taken during and after exercise did not reveal significant changes from the baseline. Patient did not experience any chest pain. No arrhythmias noted Echo data: Baseline echo images showed normal wall motion and thickening. Exercise echo images showed augmentation of wall motion and thickening in all segments. Final impression: #1. Negative stress test #2. Negative stress echo.
[2021-01-08 12:10] LABS: Chol/HDL Ratio 3.02; LDL Cholesterol,Calculated 102.8 mg/dL (0.0-131.0); VLDL Calculation 16.2 mg/dL (5.00-40.00)
[2021-01-08 12:16] LABS: Glucose,Whole Blood 149 mg/dL (75-99)
--- NOTE | 2021-01-08 16:51 | P.DS ---
Providers Date of admission: 01/07/21 11:26 Expected date of discharge: 01/08/21 Attending physician: Gilles Arciniega Consults: 01/07/21 11:26 Consult Physician Urgent Consulting Provider: Dom Stovall Consult Reason/Comments: chest pain Do you want consulting provider notified?: Yes Primary care physician: Marit[facility] Course: Discharge Diagnosis: Atypical chest pain Right posterior rib dysfucntion treated with muscle energy oseopathic manupulation Dyslipidemia Diabetes type 2 Hospital Course: Patient is a 57-year-old -Italian female with a history of diabetes mellitus type 2, dyslipidemia, arterial arthritis, and chronic back pain who initially presented to the ER with complaints of shoulder pain. She was admitted for possible coronary light. Her EKG showed no signs of acute ischemia. Troponins were negative. She was seen by cardiology and underwent echocardiogram which showed a preserved ejection fraction. She underwent a stress echo which was negative. On osteopathic exam she had a posterior right rib 7 which was treated with muscle energy techniques to that direct rib. She is determined stable for discharge home. Follow-up: Ibuprofen 600 mg every 8 hours for 3 days then as needed, follow-up with PCP in one week. Her statin was increased to help achieve a goal LDL of less than 70 in this diabetic patient. Patient seen and examined at bedside. Vital signs reviewed and stable. General: non toxic, no distress, appears at stated age Derm: warm, dry Head: atraumatic, normocephalic, symmetric Eyes: EOMI, no lid lag, anicteric sclera Mouth: no lip lesion, mucus membranes moist Cardiovascular: S1S2 reg, no murmur, positive posterior tibial pulse bilateral, Lungs: CTA bilateral, no rhonchi, no rales , no accessory muscle use Abdominal: soft, nontender to palpation, no guarding, no appreciable organomegaly Ext: no gross muscle atrophy, no edema, no contractures Neuro: CN II-XI grossly intact, no focal neuro deficits Psych: Alert, oriented, appropriate affect Osteopathic exam. Left rib 7 posterior with pain to palpation. Thoracic spine and normal alignment without any tissue texture abnormalities. Spasm over left rib 7 treated with myofascial release. Left posterior rib 7 treated with muscle energy. A total of 35 minutes of time were spent preparing this complex discharge summary . Patient Condition at Discharge: Fair Plan - Discharge Summary New Discharge Prescriptions: New Ibuprofen 600 mg PO Q8H #21 tab Atorvastatin [Lipitor] 40 mg PO DAILY #30 tablet Continue Furosemide [Lasix] 20 mg PO DAILY Valsartan/Hydrochlorothiazide [Diovan Hct 80-12.5 mg Tablet] 1 tab PO DAILY Aspirin 81 mg PO DAILY Multivitamins, Thera [Multivitamin (formulary)] 1 tab PO DAILY metFORMIN HCL [Glucophage] 1,000 mg PO BID Metoprolol Succinate [Toprol XL] 100 mg PO DAILY Metoprolol Succinate (ER) [Toprol XL] 100 mg PO DAILY Dulaglutide [Trulicity] 3 mg SQ FR valACYclovir [Valtrex] 500 mg PO DAILY Discontinued Atorvastatin Calcium [Lipitor] 10 mg PO DAILY Discharge Medication List Aspirin 81 mg PO DAILY 06/23/14 [History] Furosemide [Lasix] 20 mg PO DAILY 06/23/14 [History] Multivitamins, Thera [Multivitamin (formulary)] 1 tab PO DAILY 06/23/14 [History] Valsartan/Hydrochlorothiazide [Diovan Hct 80-12.5 mg Tablet] 1 tab PO DAILY 06/23/14 [History] Metoprolol Succinate [Toprol XL] 100 mg PO DAILY 09/01/18 [History] metFORMIN HCL [Glucophage] 1,000 mg PO BID 09/01/18 [History] Dulaglutide [Trulicity] 3 mg SQ FR 01/07/21 [History] Metoprolol Succinate (ER) [Toprol XL] 100 mg PO DAILY 01/07/21 [History] valACYclovir [Valtrex] 500 mg PO DAILY 01/07/21 [History] Atorvastatin [Lipitor] 40 mg PO DAILY #30 tablet 01/08/21 [Rx] Ibuprofen 600 mg PO Q8H #21 tab 01/08/21 [Rx] Follow up Appointment(s)/Referral(s): Maritza Martínez MD [Primary Care Provider] - 1-2 days Nancie Durham MD [STAFF PHYSICIAN] - 2 Weeks Activity/Diet/Wound Care/Special Instructions: Activity: as tolerated Diet: Carb consistent Special Instructions: Ibuprofen 600mg every 8 hours for then days then every 8 hours as needed for pain Discharge Disposition: HOME SELF-CARE
--- NOTE | 2021-01-10 09:24 | ECHOS ---
Stress Test Results/Findings: Exam Performed: stress echo exercise Exam Date: 01/08/21 Reason for Exam: CHEST PAIN Height: 5 ft 4 in Weight: 81.65 kg Protocol: STRESS ECHO Stage: 3 Duration of Exercise: 9:02 Resting Heart Rate: 70 Resting Blood Pressure: 146/96 Maximum Achieved Heart Rate: 142 Maximum Achieved Blood Pressure: 198/84 85% PMHR: 139 100% PMHR: 163 METS: 10.5 Technologist Comment: Stress Test Results/Findings: This is a 55-year-old female with history of hypertension and diabetes being evaluated for chest pains. Stress data: Baseline EKG showed sinus rhythm with normal MI and QRS duration. Blood pressure at rest is 146/96 with pulse rate of 70. Patient walked on the Flip protocol for 9 minutes reaching a maximum rate of 142 with a blood pressure 168/87. EKGs taken during and after exercise did not reveal significant changes from the baseline. Patient did not experience any chest pain. No arrhythmias noted Echo data: Baseline echo images showed normal wall motion and thickening. Exercise echo images showed augmentation of wall motion and thickening in all segments. Final impression: #1. Negative stress test #2. Negative stress echo. HANNAH
== END 2021-01-08 13:35 | disposition home or self-care (01) ==
LOC: EC 08:28 → 6NMEDSUR 11:26
PROVIDERS: ADMIT Internal Medicine; ATTEND Internal Medicine
DX: R07.89 Other chest pain (principal); E78.5 Hyperlipidemia, unspecified; E11.9 Type 2 diabetes mellitus without complications; K21.9 Gastro-esophageal reflux disease without esophagitis; I10 Essential (primary) hypertension; M99.08 Segmental and somatic dysfunction of rib cage; M25.511 Pain in right shoulder; R05 Cough; G89.29 Other chronic pain; M54.5 Low back pain; M19.90 Unspecified osteoarthritis, unspecified site; Z79.82 Long term (current) use of aspirin; Z79.84 Long term (current) use of oral hypoglycemic drugs; Z79.899 Other long term (current) drug therapy; Z87.39 Personal history of other diseases of the musculoskeletal system and connective tissue; Z90.710 Acquired absence of both cervix and uterus; Z82.49 Family history of ischemic heart disease and other diseases of the circulatory system
CPT/HCPCS: 99285; 93005 ×2; 36415; 93306; 93351; 85379; 80061; 80053; 83735; 84484; 85025; 85610; 85730; 71046; G0378 ×2

== ENCOUNTER → 2021-04-01 | Outpatient (CLI) | payer BC ==
--- NOTE | 2021-04-02 14:18 | MM ---
Reason for exam: screening (asymptomatic). Last mammogram was performed 1 year ago. History: Patient is postmenopausal. Physical Findings: A clinical breast exam by your physician is recommended on an annual basis and results should be correlated with mammographic findings. MG 3D Screening Mammo W/Cad Bilateral CC and MLO view(s) were taken. Prior study comparison: March 21, 2020, bilateral MG 3d screening mammo w/cad. September 03, 2018, bilateral MG 3d screening mammo w/cad. There are scattered fibroglandular densities. There is chronic nodularity in the left breast anterior and medially. No significant changes when compared with prior studies. ASSESSMENT: Benign, BI-RAD 2 RECOMMENDATION: Routine screening mammogram of both breasts in 1 year.
== END | disposition home or self-care (01) ==
LOC: RADMAMWWP 16:03
PROVIDERS: ATTEND Family Medicine
DX: Z12.31 Encounter for screening mammogram for malignant neoplasm of breast (principal); Z78.0 Asymptomatic menopausal state
CPT/HCPCS: 77063; 77067

== ENCOUNTER → 2022-04-29 | Outpatient (CLI) | payer BC ==
--- NOTE | 2022-04-30 10:09 | MM ---
Reason for Exam: Screening (asymptomatic). Last mammogram was performed 1 year(s) and 1 month(s) ago. Patient History: Menarche at age 10. First Full-Term at age 15. Right ovary removed at age 40. Hysterectomy at age 40. Postmenopausal. Risk Values: Shari 5 year model risk: 1.0%. NCI Lifetime model risk: 5.6%. Prior Study Comparison: 09/03/2018 Bilateral Screening Mammogram, [facility]. 03/21/2020 Bilateral Screening Mammogram, [facility]. 04/01/2021 Bilateral Screening Mammogram, [facility]. Tissue Density: There are scattered fibroglandular densities. Findings: Analyzed By CAD. Stable circumscribed 7 mm round mass in the left breast medial aspect anteriorly. There is no suspicious new group of microcalcifications or new suspicious mass in either breast. Overall Assessment: Negative, BI-RAD 1 Management: Screening Mammogram of both breasts in 1 year. A clinical breast exam by your physician is recommended on an annual basis and results should be correlated with mammographic findings. Electronically signed and approved by: Oleg Reyes M.D.
== END | disposition home or self-care (01) ==
LOC: RADMAMWWP 13:20
PROVIDERS: ATTEND Family Medicine
DX: Z12.31 Encounter for screening mammogram for malignant neoplasm of breast (principal); Z78.0 Asymptomatic menopausal state
CPT/HCPCS: 77063; 77067

== ENCOUNTER 2023-03-10 06:55 | Day surgery (SDC) | payer BC ==
[2023-03-04 10:26] VITALS: BMI 29.7
[~2023-03-10 06:55] MED LIST: LACTATED RINGERS 1,000 ML IV SCH; LIDOCAINE 1% (10MG/ML) FOR IV START INTRADERMA PRN
[2023-03-10 08:02] VITALS: RESP 16; TEMP 97.5
[2023-03-10 08:06] LABS: Glucose,Whole Blood 93 mg/dL (70-110)
[2023-03-10] MEDS ORDERED: PROPOFOL 10 MG/ML 20 ML VIAL IV ONE (08:14)
--- NOTE | 2023-03-10 08:37 | P.PCN ---
Date of Procedure: 03/10/23 Procedure(s) Performed: BRIEF HISTORY: Patient is a 57-year-old pleasant -[place]ian merican female scheduled for an elective colonoscopy as a part of evaluation of intermittent rectal bleeding for the last few weeks duration. PROCEDURE PERFORMED: Colonoscopy. PREOPERATIVE DIAGNOSIS: Intermittent rectal bleeding IV sedation per Anesthesia. PROCEDURE: After informed consent was obtained, the patient, was brought into the endoscopy unit. IV sedation was administered by Anesthesia under continuous monitoring. Digital rectal examination was normal. Initially the Olympus CF-160 flexible video pediatric colonoscope was then inserted in the rectum, gradually advanced into the cecum without any difficulty. Careful examination was performed as the scope was gradually being withdrawn. Ileocecal valve and the appendiceal orifice were visualized and appeared normal. Prep was excellent. Mucosa of the cecum, ascending colon, transverse colon, descending colon, sigmoid colon, and rectum appeared normal. Retroflexion was performed in the rectum and and small internal hemorrhoidse seen. The patient tolerated the procedure well. IMPRESSION: Normal-appearing colon from rectum to cecum with no evidence of colorectal neoplasia . Small internal hemorrhoids. RECOMMENDATIONS: Findings of this examination were discussed with the patient .as well as a family. She was advised to be a high-fiber diet and take fiber supplements a regular basis. Recommend repeat screening colonoscopy in 10 y ears.
[2023-03-10 09:03] VITALS: BP 151/89; PULSE 70
== END 2023-03-10 09:23 | disposition home or self-care (01) ==
LOC: ORWHC2ENDO 06:55
PROVIDERS: ATTEND Internal Medicine Gastroenterology
DX: K62.5 Hemorrhage of anus and rectum (principal); K64.8 Other hemorrhoids; I10 Essential (primary) hypertension; E78.5 Hyperlipidemia, unspecified; E11.9 Type 2 diabetes mellitus without complications; Z79.85 Long-term (current) use of injectable non-insulin antidiabetic drugs; Z79.899 Other long term (current) drug therapy
CPT/HCPCS: 45378; J2704

== ENCOUNTER → 2023-04-27 | Outpatient (CLI) | payer BC ==
[2023-04-27 16:32] LABS: Basophils # (A) 0.02 X 10*3/uL (0.00-0.10); Basophils % (A) 0.5 %; Eosinophils # (A) 0.04 X 10*3/uL (0.04-0.35); Eosinophils % (A) 1.1 %; HCT 41.5 % (37.2-46.3); HGB 13.6 g/dL (12.0-15.0); Lymphocytes # (A) 1.59 X 10*3/uL (0.90-5.00); MCH 30.5 pg (27.0-32.0); MCHC 32.8 g/dL (32.0-37.0); Monocytes # (A) 0.39 X 10*3/uL (0.20-1.00); Monocytes % (A) 10.5 %; NRBC Per 100 WBC 0 X 10*3/uL (0.00-0.01); Neutrophils # (A) 1.65 X 10*3/uL (1.80-7.70); Neutrophils % (A) 44.6 %; Platelet Count 200 X 10*3/uL (140-440); RBC 4.46 X 10*6/uL (4.10-5.20); RDW 13.7 % (11.5-14.5)
== END | disposition home or self-care (01) ==
LOC: LABWHC1 10:49
PROVIDERS: ATTEND Family Medicine
DX: Z00.00 Encounter for general adult medical examination without abnormal findings (principal)
CPT/HCPCS: 36415; 84443; 85025

== ENCOUNTER → 2023-05-13 | Outpatient (CLI) | payer BC ==
--- NOTE | 2023-05-14 22:36 | MM ---
Reason for Exam: Screening (asymptomatic). Last screening mammogram was performed 12 month(s) ago. Patient History: Menarche at age 10. First Full-Term at age 15. Right ovary removed at age 40. Hysterectomy at age 40. Postmenopausal. Risk Values: Shari 5 year model risk: 1.4%. NCI Lifetime model risk: 7.1%. Prior Study Comparison: 03/21/2020 Bilateral Screening Mammogram, [facility]. 04/01/2021 Bilateral Screening Mammogram, [facility]. 04/29/2022 Bilateral MG 3D screening mammo w/cad, [facility]. Tissue Density: There are scattered fibroglandular densities. Findings: Analyzed By CAD. Chronic nodularity medial left breast. There is no suspicious group of microcalcifications or new suspicious mass in either breast. Overall Assessment: Benign, BI-RAD 2 Management: Screening Mammogram of both breasts in 1 year. . Patient should continue monthly self-breast exams. A clinical breast exam by your physician is recommended on an annual basis. This exam should not preclude additional follow-up of suspicious palpable abnormalities. Note on Shari scores and lifetime risk: 1. A Shari score greater than 3% is considered moderate risk. If this is the case, consider specialist referral to assess eligibility for a risk reducing agent. 2. If overall lifetime risk for the development of breast cancer is 20% or higher, the patient may qualify for future screening with alternating mammogram and breast MRI. Electronically signed and approved by: Terry Moore M.D. Radiologist
== END | disposition home or self-care (01) ==
LOC: RADMAMWWP 07:28
PROVIDERS: ATTEND Family Medicine
DX: Z12.31 Encounter for screening mammogram for malignant neoplasm of breast (principal); Z78.0 Asymptomatic menopausal state
CPT/HCPCS: 77063; 77067

== ENCOUNTER 2023-05-30 09:49 | Emergency (ER) | payer BC ==
--- NOTE | 2023-05-30 10:35 | ED ---
General Adult HPI - General Source: patient Mode of arrival: ambulatory Limitations: no limitations <Smith Root - Last Filed: 05/30/23 16:46> - General Source: RN notes reviewed <Lucrecia Mathis - Last Filed: 06/03/23 03:48> - General Chief complaint: Skin/Abscess/Foreign Body Stated complaint: shingles - History of Present Illness Initial comments: Quick note: Patient states she thinks she has had a shingles rash for 4 days. It started off as small red bumps but is now blotchy. It is on the left side of her arm, across her stomach (both sides), some on both legs. It is itchy. She was using hydrocortisone which helped a little. Verbally signed by Smith Root PAC 05/30/22 [id number] (Smith Root) Reviewed. This is a pleasant 57-year-old -[place] female who presents the emergency department with a chief complaint of rash. She reports a nonspecific rash to her abdomen and lower extremities. She reports that it started as small red bumps that have increased in size and is now blotchy. She reports that is on her arm, across her stomach on both sides in both legs. She does report it is itchy. She has been using topical hydrocortisone cream with mesenteric improvement. Denies any known fevers. Denies shortness of breath. (Lucrecia Mathis) - Related Data Home Medications Medication Instructions Recorded Confirmed Aspirin 81 mg PO DAILY 06/23/14 03/04/23 Furosemide [Lasix] 20 mg PO DAILY 06/23/14 03/04/23 Multivitamins, Thera [Multivitamin 1 tab PO DAILY 06/23/14 03/04/23 (formulary)] Valsartan/Hydrochlorothiazide 1 tab PO DAILY 06/23/14 03/04/23 [Diovan Hct 80-12.5 mg Tablet] Metoprolol Succinate [Toprol XL] 100 mg PO DAILY 09/01/18 03/04/23 Dulaglutide [Trulicity] 3 mg SQ SA 01/07/21 03/04/23 valACYclovir HCL [Valtrex] 500 mg PO DAILY 01/07/21 03/04/23 Acetaminophen Tab [Tylenol] 1 - 2 tab PO DAILY PRN 03/04/23 03/04/23 Cinnergy 1,000 mg PO DAILY 03/04/23 03/04/23 Insulin Glargine,Hum.rec.anlog 8 - 10 unit SQ QAM 03/04/23 03/04/23 [Toshanda Solostalley] L.acidoph,Paracasei, B.lactis 1 each PO DAILY 03/04/23 03/04/23 [Probiotic] Magnesium 200 mg PO DAILY 03/04/23 03/04/23 Pioglitazone [Actos] 15 mg PO DAILY 03/04/23 03/04/23 Potassium Gluconate [Potassium 500 mg PO DAILY 03/04/23 03/04/23 (2.5 MEQ = 600 MG)] Previous Rx's Medication Instructions Recorded Atorvastatin [Lipitor] 40 mg PO DAILY #30 tablet 01/08/21 Cephalexin [Keflex] 500 mg PO Q8HR #21 cap 05/30/23 Allergies Allergy/AdvReac Type Severity Reaction Status Date / Time No Known Allergies Allergy Verified 05/30/23 10:10 Review of Systems ROS Other: All systems not noted in ROS Statement are negative. <Smith Root - Last Filed: 05/30/23 16:46> ROS Other: All systems not noted in ROS Statement are negative. <Lucrecia Mathis - Last Filed: 06/03/23 03:48> ROS Statement: Those systems with pertinent positive or pertinent negative responses have been documented in the HPI. Past Medical History Past Medical History: Diabetes Mellitus, Hypertension, Osteoarthritis (OA) Additional Past Medical History / Comment(s): Chronic back pain, recent rectal bleeding/constipation History of Any Multi-Drug Resistant Organisms: None Reported Past Surgical History: Hysterectomy, Orthopedic Surgery Additional Past Surgical History / Comment(s): carpal tunnel, D&C, colonoscopy 8 yrs ago clear Past Anesthesia/Blood Transfusion Reactions: No Reported Reaction Past Psychological History: No Psychological Hx Reported Smoking Status: Never smoker Past Alcohol Use History: None Reported Past Drug Use History: None Reported - Past Family History Father Family Medical History: Diabetes Mellitus Mother Family Medical History: Diabetes Mellitus <Smith Root - Last Filed: 05/30/23 16:46> General Exam Limitations: no limitations <Smith Root - Last Filed: 05/30/23 16:46> <Lucrecia Mathis - Last Filed: 06/03/23 03:48> - General Exam Comments Initial Comments: Visual physical exam: well appearing, no distress. Unable to see rash. (Smith Root) General: Alert, in no acute distress Head: atraumatic normocephalic. Eyes PERRL, EOMI intact, mucous membranes moist Respiratory: Lungs clear to auscultation bilaterally Cardiovascular: Heart rate regular rate and rhythm Abdominal: Soft without guarding or rebound Extremities: Normal inspection with full range of motion and normal capillary refill, diffuse small circular erythematous lesions to abdomen bilateral lower extremities and bilateral forearms without fluctuance, tenderness. Neuroogic: alert and oriented 3, CN II-XII intact, able to ambulate with steady gait Skin: warm dry and intact with normal color (Lucrecia Mathis) Course Vital Signs 05/30/23 05/30/23 10:08 12:23 Temperature 98.1 F 98.2 F Pulse Rate 69 71 Respiratory 20 18 Rate Blood Pressure 172/83 150/84 O2 Sat by Pulse 100 98 Oximetry Medical Decision Making <Lucrecia Mathis - Last Filed: 06/03/23 03:48> - Medical Decision Making Was pt. sent in by a medical professional or institution (, PA, WRAPPER STITCHER, urgent care, hospital, or care home...) When possible be specific @ -[No] Did you speak to anyone other than the patient for history (EMS, parent, family, police, friend...)? What history was obtained from this source @ -[No] Did you review nursing and triage notes (agree or disagree)? Why? @ -[I reviewed and agree with nursing and triage notes] Were old charts reviewed (outside hosp., previous admission, EMS record, old EKG, old radiological studies, urgent care reports/EKG's, care home records)? Report findings @ -[No old charts were reviewed] Differential Diagnosis (chest pain, altered mental status, abdominal pain women, abdominal pain men, vaginal bleeding, weakness, fever, dyspnea, syncope, headache, dizziness, GI bleed, back pain, seizure, CVA, palpatations, mental health, musculoskeletal)? @ -[not applicable] EKG interpreted by me (3pts min.). @ -[As above] X-rays interpreted by me (1pt min.). @ -[None done] CT interpreted by me (1pt min.). @ -[None done] U/S interpreted by me (1pt. min.). @ -[None done] What testing was considered but not performed or refused? (CT, X-rays, U/S, labs)? Why? @ -[None] What meds were considered but not given or refused? Why? @ -[None] Did you discuss the management of the patient with other professionals (professionals i.e. DrKristian, PA, WRAPPER STITCHER, lab, RT, psych nurse, social and political studies professor, rn compliance, teacher, occupational medicine officer, director of casework services)? Give summary @ -[No] Was smoking cessation discussed for >3mins.? @ -[No] Was critical care preformed (if so, how long)? @ -[No] Were there social determinants of health that impacted care today? How? (Homelessness, low income, unemployed, alcoholism, drug addiction, transportation, low edu. Level, literacy, decrease access to med. care, care home, rehab)? @ -[No] Was there de-escalation of care discussed even if they declined (Discuss DNR or withdrawal of care, Hospice)? DNR status @ -[No] What co-morbidities impacted this encounter? (DM, HTN, Smoking, COPD, CAD, Cancer, CVA, ARF, Chemo, Hep., AIDS, mental health diagnosis, sleep apnea, morbid obesity)? @ -[None] Was patient admitted / discharged? Hospital course, mention meds given and route, prescriptions, significant lab abnormalities, going to OR and other pertinent info. @ Discharged, This is a 57-year-old female who presents the emergency department with rash. Patient had a thorough history and physical exam performed. She is provided all dose of Keflex and steroids. Return precautions discussed at length. Discharged in stable condition. Case is discussed with , ED attending who agrees with plan of care Undiagnosed new problem with uncertain prognosis? @ -[No] Drug Therapy requiring intensive monitoring for toxicity (Heparin, Nitro, Insulin, Cardizem)? @ -[No] Were any procedures done? @ -[No] Diagnosis/symptom? @ -Rash Acute, or Chronic, or Acute on Chronic? @ -Acute Uncomplicated (without systemic symptoms) or Complicated (systemic symptoms)? @ -[Uncomplicated Side effects of treatment? @ -[No] Exacerbation, Progression, or Severe Exacerbation? @ -[No] Poses a threat to life or bodily function? How? (Chest pain, [place], [place], pneumonia, PE, COPD, DKA, ARF, appy, cholecystitis, CVA, Diverticulitis, Homicidal, Suicidal, threat to staff... and all critical care pts) @ -Low likelihood (Lucrecia Mathis) Disposition <Smith Root - Last Filed: 05/30/23 16:46> Is patient prescribed a controlled substance at d/c from ED?: No Time of Disposition: 12:00 <Lucrecia Mathis - Last Filed: 06/03/23 03:48> Clinical Impression: Rash Disposition: HOME SELF-CARE Condition: Stable Instructions (If sedation given, give patient instructions): Acute Rash (ED) Additional Instructions: Pleae take antibiotics as prescribed Please apply steroid cream to affected area Please follow-up with Dr. Hoffman Please return to the nearest emergency department with worsening or persistent symptoms Prescriptions: Cephalexin [Keflex] 500 mg PO Q8HR #21 cap Referrals: Maritza Martínez MD [Primary Care Provider] - 1-2 days Annita Hoffman MD [STAFF PHYSICIAN] - 1-2 days
[2023-05-30] MEDS ORDERED: diphenhydrAMINE 25 MG CAP PO STA (11:54)
[2023-05-30] MEDS ORDERED: methylPREDNISolone SOD SUCCI 125 MG/2 ML VIAL IM ONE (11:54)
[2023-05-30] MEDS ORDERED: FAMOTIDINE 20 MG TAB PO STA (11:55)
[2023-05-30] MEDS ORDERED: CEPHALEXIN 500 MG CAP PO STA (11:55)
[2023-05-30 12:30] VITALS: BP 150/84; PULSE 71; RESP 18; TEMP 98.2
== END 2023-05-30 12:26 | disposition home or self-care (01) ==
LOC: EC 09:49
DX: R21 Rash and other nonspecific skin eruption (principal); E11.9 Type 2 diabetes mellitus without complications; I10 Essential (primary) hypertension; Z79.4 Long term (current) use of insulin; Z79.85 Long-term (current) use of injectable non-insulin antidiabetic drugs; Z79.84 Long term (current) use of oral hypoglycemic drugs; Z79.82 Long term (current) use of aspirin; Z79.899 Other long term (current) drug therapy
CPT/HCPCS: 99282; 96372; J2930

== ENCOUNTER → 2024-05-17 | Outpatient (CLI) | payer BC ==
--- NOTE | 2024-05-19 15:23 | MM ---
Reason for Exam: Screening (asymptomatic). Last screening mammogram was performed 12 month(s) ago. Patient History: Menarche at age 10. First Full-Term at age 15. Left ovary removed at age 40. Right ovary removed at age 40. Hysterectomy at age 40. Postmenopausal. Risk Values: Shari 5 year model risk: 1.4%. NCI Lifetime model risk: 6.9%. Prior Study Comparison: 04/01/2021 Bilateral Screening Mammogram, [facility]. 04/29/2022 Bilateral MG 3D screening mammo w/cad, [facility]. 05/13/2023 Bilateral MG 3D screening mammo w/cad, [facility]. Tissue Density: There are scattered areas of fibroglandular density. Findings: Analyzed By CAD. Chronic nodularity anterior medial left breast. There is no suspicious group of microcalcifications or new suspicious mass in either breast. Overall Assessment: Benign, BI-RAD 2 Management: Screening Mammogram of both breasts in 1 year. Patient should continue monthly self-breast exams. A clinical breast exam by your physician is recommended on an annual basis. This exam should not preclude additional follow-up of suspicious palpable abnormalities. Note on Shari scores and lifetime risk: 1. A Shari score greater than 3% is considered moderate risk. If this is the case, consider specialist referral to assess eligibility for a risk reducing agent. 2. If overall lifetime risk for the development of breast cancer is 20% or higher, the patient may qualify for future screening with alternating mammogram and breast MRI. [facility], , 05/19/2024 3:21 PM. Electronically signed and approved by: Terry Moore M.D. Radiologist
== END | disposition home or self-care (01) ==
LOC: RADMAMWWP 07:04
PROVIDERS: ATTEND Family Medicine
DX: Z12.31 Encounter for screening mammogram for malignant neoplasm of breast (principal); Z90.722 Acquired absence of ovaries, bilateral; Z78.0 Asymptomatic menopausal state; R92.323 Mammographic fibroglandular density, bilateral breasts
CPT/HCPCS: 77063; 77067